=== PATIENT | female | born 1955 | race Two or more races ===

== ENCOUNTER 2023-04-08 09:41 | Emergency (ER) | payer OTHER ==
[2023-04-08] MEDS ORDERED: ONDANSETRON 4 MG ODT TAB PO ONE (10:45)
[2023-04-08] MEDS ORDERED: MAG-AL HYDROX/SIMETH 30 ML UDC PO ONE (10:45)
[2023-04-08] MEDS ORDERED: DICYCLOMINE HCL 10 MG/5 ML SOLUTION PO ONE (10:45)
[2023-04-08] MEDS ORDERED: ACETAMINOPHEN 500 MG TABLET PO ONE (10:45)
[2023-04-08 11:09] LABS: BILIRUBIN,URINE 1+ (NEGATIVE); GLUCOSE,URINE NEGATIVE (NEGATIVE); KETONES,URINE NEGATIVE (NEGATIVE); LEUKOCYTE ESTERASE ,URINE NEGATIVE (NEGATIVE); NITRITE, URINE NEGATIVE (NEGATIVE); PROTEIN URINE TRACE (NEGATIVE); UROBILINOGEN,URINE 0.2 (0.2-1.0)
[2023-04-08 11:11] LABS: BASOPHILS % (AUTO) 0.2 % (0.0-2.0); EOSINOPHILS # (AUTO) 0.1 K/uL (0.0-0.4); EOSINOPHILS % (AUTO) 1.1 % (0.0-4.0); HEMOGLOBIN 15.2 g/dL (12.0-16.0); LYMPHOCYTES % (AUTO) 24.9 % (20.5-51.5); MEAN CORPUSCULAR HEMOGLOBIN 31 pg (27-31); MEAN CORPUSCULAR HGB CONC 35 % (32-36); MEAN CORPUSCULAR VOLUME 88 fL (79.0-98.0); MONOCYTES # (AUTO) 1.1 K/uL (0.0-1.0); MONOCYTES % (AUTO) 13.9 % (1.7-9.3); NEUTROPHILS # (AUTO) 4.9 K/uL (1.8-7.7); NEUTROPHILS % (AUTO) 59.9 % (40.0-70.0); PLATELET COUNT (AUTO) 183 K/uL (130-430); RED BLOOD CELL COUNT(AUTO) 4.99 MIL/uL (4.2-6.2); RED CELL DISTRIBUTION WIDTH 13.9 % (9.0-15.0); WHITE BLOOD COUNT (AUTO) 8.2 K/uL (4.8-10.8)
[2023-04-08 11:12] LABS: BLOOD, URINE TRACE (NEGATIVE); COLOR,URINE AMBER (YELLOW)
[2023-04-08 11:13] LABS: CLARITY/URINE HAZY (CLEAR)
[2023-04-08 11:20] LABS: BACTERIA,URINE RARE /HPF (None Seen); MUCUS,URINE 1+ /LPF (None Seen); RBC,URINE 0-3 /HPF (0-3); WBC,URINE 0-3 /HPF (0-3)
[2023-04-08 11:30] LABS: ANION GAP 10 (5-15); CALCIUM 9.9 mg/dL (8.4-11.0); CARBON DIOXIDE 24 mmol/L (23-29); CHLORIDE 103 mmol/L (98-107); CREATININE 0.85 mg/dL (0.55-1.30); GFR AFRICAN AMERICAN 86 mL/min (>90); GLUCOSE 122 mg/dL (74-106); POTASSIUM 3.5 mmol/L (3.5-5.1); SODIUM SERUM 137 mmol/L (136-145); UREA NITROGEN, BLOOD 19 mg/dL (8-21)
[2023-04-08 11:31] LABS: GFR NON AFRICAN-AMERICAN 71 mL/min (>90)
[2023-04-08 11:36] LABS: ALANINE AMINOTRANSFERASE 81 U/L (12-78); ALBUMIN 3.2 g/dL (3.4-4.8); ASPARTATE AMINOTRANSFERASE 59 U/L (10-37); BILIRUBIN,DIRECT 0.2 mg/dL (0.0-0.3); LIPASE 245 U/L (16-77); TOTAL BILIRUBIN 0.7 mg/dL (0.0-1.0); TOTAL PROTEIN, SERUM 7.5 g/dL (6.4-8.3)
[2023-04-08] MEDS ORDERED: DICY-14 PO (13:16)
[2023-04-08] MEDS ORDERED: PEPTAB PO (13:16)
[2023-04-08] MEDS ORDERED: CIPR500T5 PO (13:16)
[2023-04-08] MEDS ORDERED: IMO2 PO (13:16)
[2023-04-08 14:16] VITALS: BP_SYST 117; PULSE 79; RESP 18; TEMP 97; O2SAT 97
== END 2023-04-08 14:00 | disposition home or self-care (01) ==
LOC: SED 09:41
DX: K29.00 Acute gastritis without bleeding (principal); R19.7 Diarrhea, unspecified; R74.01 Elevation of levels of liver transaminase levels; Z79.899 Other long term (current) drug therapy; R11.0 Nausea
CPT/HCPCS: 99284; 76705; 80076; 80048; 81000; 81001; 83690; 85025; 84484; 36415; 93005; 81015; Q0162